=== PATIENT | male | born 1965 | race Caucasian/White ===

== ENCOUNTER 2022-12-04 17:30 | Emergency (ER) | payer OTHER, SELFPAY ==
[2022-12-04] MEDS ORDERED: Sodium Chloride 0.9% 100 ML ONE ×2 (18:32→19:57)
[2022-12-04] MEDS ORDERED: cefTRIAXone (ROCEPHIN) 2 GM VIAL ONE (18:32)
[2022-12-04] MEDS ORDERED: metroNIDAZOLE 500 MG/100 ML BAG ONE (18:48)
[2022-12-04] MEDS ORDERED: Sodium Chloride 0.9% 0 ML ONE (19:57)
[2022-12-04] MEDS ORDERED: Atorvastatin Calcium 40 MG TAB PO SCH (23:15)
[2022-12-04] MEDS ORDERED: HumaLOG 300 UNITS/3 ML VIAL SC SCH (23:15)
[2022-12-04] MEDS ORDERED: metroNIDAZOLE 500 MG TAB ONE (23:37)
[2022-12-05] MEDS ORDERED: Ondansetron PF 4 MG/2 ML Vial ONE (11:52)
[2022-12-05] MEDS ORDERED: Sodium Chloride 0.9% 100 ML ONE ×2 (20:38→21:13)
[2022-12-05] MEDS ORDERED: cefTRIAXone (ROCEPHIN) 2 GM VIAL ONE (20:38)
[2022-12-05] MEDS ORDERED: Acetaminophen 325 MG TAB ONE (20:55)
[2022-12-05] MEDS ORDERED: HumaLOG 300 UNITS/3 ML VIAL SC SCH (21:30)
[2022-12-06] MEDS ORDERED: metroNIDAZOLE 500 MG TAB ONE (17:51)
[2022-12-06] MEDS ORDERED: Sodium Chloride 0.9% 200 ML ONE (17:52)
[2022-12-06] MEDS ORDERED: cefTRIAXone (ROCEPHIN) 2 GM VIAL ONE ×2 (17:52→17:53)
[2022-12-07] MEDS ORDERED: Ondansetron PF 4 MG/2 ML Vial ONE (00:30)
[2022-12-07] MEDS ORDERED: Pantoprazole 40 MG VIAL ONE (00:30)
[2022-12-07] MEDS ORDERED: Acetaminophen 500 MG TAB ONE (00:30)
[2022-12-07 08:30] LABS: #Basophils 0.1 thou/uL (0.0-0.2); #Eosinphils 0.3 thou/uL (0.0-0.7); #Lymphocytes 1.3 thou/uL (1.20-3.40); #Monocytes 0.6 thou/uL (0.11-0.59); #Neutrophils 1.9 thou/uL (1.40-6.50); %Basophils 1.4 % (0.0-1.0); %Eosinophils 7.9 % (0.0-10.0); %Lymphocytes 30.8 % (21.0-51.0); %Monocytes 14.1 % (0.0-10.0); %Neutrophils 45.9 % (42.0-75.0); Hematocrit 31.9 % (42.0-52.0); Hemoglobin 9.7 g/dL (14.0-18.0); Mean Corpuscular HGB CONC 30.4 g/dL (32.0-36.0); Mean Corpuscular Hemoglobin 26.8 pg (27.0-31.0); Mean Platelet Volume 6.9 fL (7.4-10.4); Platelet Count 188 10x3/uL (130-400); RBC Distribution Width 16.3 % (11.5-14.5); Red Blood Cell (RBC) Count 3.62 mill/uL (4.70-6.10); White Blood Cell (WBC) Count 4.2 10x3/uL (4.8-10.8)
[2022-12-07 08:45] LABS: Anion Gap 13 mmol/L (10-20); BUN (Urea Nitrogen) 20 mg/dL (8.4-25.7); Calc. Creatinine Clearance 0 mL/min (70-130); Carbon Dioxide 31 mmol/L (22-29); Chloride 98 mmol/L (98-107); Estimated GFR 46; Glucose 164 mg/dL (70-105); Potassium 4.3 mmol/L (3.5-5.1); Sodium 138 mmol/L (136-145)
[2022-12-07] MEDS ORDERED: Losartan Potassium 50 MG TAB ONE (11:04)
[2022-12-07] MEDS ORDERED: Carvedilol 3.125 MG TAB ONE (11:04)
[2022-12-07] MEDS ORDERED: Amlodipine 5 MG TAB ONE (11:04)
[2022-12-07] MEDS ORDERED: metroNIDAZOLE 500 MG TAB ONE (11:04)
[2022-12-07] MEDS ORDERED: Lantus 1000 UNITS/10 ML VIAL SC SCH (11:15)
== END 2022-12-07 18:47 ==
LOC: NAV ERS 17:30
DX: L08.9 Local infection of the skin and subcutaneous tissue, unspecified (principal); I10 Essential (primary) hypertension; E78.5 Hyperlipidemia, unspecified; E11.9 Type 2 diabetes mellitus without complications; Z79.4 Long term (current) use of insulin; Z87.891 Personal history of nicotine dependence
CPT/HCPCS: 36415; 36416; 80048; 85025; 96365; 96367; 96375; 96376; C9113; J0696; J1815; J2248; J2405; J3490

== ENCOUNTER 2023-01-07 07:42 | Emergency (ER) | payer OTHER, SELFPAY ==
[2023-01-07] MEDS ORDERED: Bacitracin 1 PK ONE (10:13)
== END 2023-01-07 10:46 | disposition home or self-care (01) ==
LOC: NAV ERS 07:42
DX: S83.91XA Sprain of unspecified site of right knee, initial encounter (principal); S90.811A Abrasion, right foot, initial encounter; S90.411A Abrasion, right great toe, initial encounter; I10 Essential (primary) hypertension; E11.40 Type 2 diabetes mellitus with diabetic neuropathy, unspecified; G47.30 Sleep apnea, unspecified; E78.5 Hyperlipidemia, unspecified; X50.1XXA Overexertion from prolonged static or awkward postures, initial encounter; Y93.89 Activity, other specified; Z87.891 Personal history of nicotine dependence; Z79.4 Long term (current) use of insulin; Z79.899 Other long term (current) drug therapy; Z89.422 Acquired absence of other left toe(s)